=== PATIENT | female | born 1965 | race Caucasian/White ===

== ENCOUNTER → 2020-05-27 | Outpatient (CLI) | payer MEDICARE ==
[~2020-05-27] MED LIST: ALBU2.5V11 NEB; ALBU6.7H8 INH; AMLO-211 PO; FAMO40TA61 PO; FLUT1BLS12 INH; HYDR25TA6 PO; OMEP-110 PO; SUCR1TAB33 PO; [UNRECOGNIZED DRUG - OTHER]; ellipta
== END | disposition home or self-care (01) ==
LOC: STAR 14:10
PROVIDERS: ATTEND Family Medicine
DX: Z20.828 Contact with and (suspected) exposure to other viral communicable diseases (principal)
CPT/HCPCS: 87635

== ENCOUNTER 2020-06-01 09:13 | Day surgery (SDC) | payer MEDICARE ==
[~2020-06-01] VITALS: Ht 157.5 cm; Wt 54.8 kg
[~2020-06-01 09:13] MED LIST changes: -ALBU2.5V11 NEB; -ALBU6.7H8 INH; -AMLO-211 PO; -FAMO40TA61 PO; -FLUT1BLS12 INH; -HYDR25TA6 PO; -OMEP-110 PO; +PROPOFOL 50 ML ONE; -SUCR1TAB33 PO; -[UNRECOGNIZED DRUG - OTHER]; -ellipta
[2020-06-01] MEDS ORDERED: FLUT1BLS12 INH (09:56)
[2020-06-01] MEDS ORDERED: FAMO40TA61 PO (09:56)
[2020-06-01] MEDS ORDERED: OMEP-110 PO (09:56)
[2020-06-01] MEDS ORDERED: ellipta (09:56)
[2020-06-01] MEDS ORDERED: HYDR25TA6 PO (09:56)
[2020-06-01] MEDS ORDERED: [UNRECOGNIZED DRUG - OTHER] (09:56)
[2020-06-01] MEDS ORDERED: SUCR1TAB33 PO (09:56)
[2020-06-01] MEDS ORDERED: ALBU6.7H8 INH (09:56)
[2020-06-01] MEDS ORDERED: AMLO-211 PO (09:56)
[2020-06-01] MEDS ORDERED: ALBU2.5V11 NEB (09:56)
[2020-06-01 09:57] VITALS: BP 115/83
[2020-06-01] MEDS ORDERED: LACTATED RINGERS 1,000 ML IV SCH (10:00)
[2020-06-01] MEDS ORDERED: CHLORHEXIDINE 15 ML UDC MM ONE (10:00)
[2020-06-01] MEDS ORDERED: PROMETHAZINE 25 MG/ML, 1ML IVPush PRN (11:00)
[2020-06-01] MEDS ORDERED: FENTANYL PF 100 MCG/2ML IV PRN (11:00)
[2020-06-01] MEDS ORDERED: hydrALAzine 20 MG/ML, 1ML IV PRN (11:00)
[2020-06-01] MEDS ORDERED: EPHEDRINE 50 MG/ML, 1ML IVPush PRN (11:00)
[2020-06-01] MEDS ORDERED: ACETAMINOPHEN 325 MG TABLET PO PRN (11:00)
[2020-06-01] MEDS ORDERED: OXYcodone 5 MG/5 ML ORAL.SOL UDC PO PRN (11:00)
[2020-06-01] MEDS ORDERED: ONDANSETRON 2MG/ML, 2ML IVPush PRN (11:00)
[2020-06-01] MEDS ORDERED: LABETALOL 5MG/ML, 20ML IV PRN (11:00)
== END 2020-06-01 12:00 | disposition home or self-care (01) ==
LOC: OUT 09:13
PROVIDERS: ATTEND Internal Medicine Geriatric Medicine
DX: K92.1 Melena (principal); D12.2 Benign neoplasm of ascending colon; K64.0 First degree hemorrhoids; D64.9 Anemia, unspecified; K21.9 Gastro-esophageal reflux disease without esophagitis; I10 Essential (primary) hypertension; J44.9 Chronic obstructive pulmonary disease, unspecified; Z79.899 Other long term (current) drug therapy; Z88.5 Allergy status to narcotic agent; Z90.49 Acquired absence of other specified parts of digestive tract; Z90.710 Acquired absence of both cervix and uterus; Z90.89 Acquired absence of other organs; Z99.81 Dependence on supplemental oxygen; Z80.0 Family history of malignant neoplasm of digestive organs
CPT/HCPCS: 43235; 45380; 88305; J2704